=== PATIENT | male | born 1975 | race Caucasian/White ===

== ENCOUNTER → 2017-04-01 | Outpatient (CLI) | payer OTHER | LOC: BMCIMAGING 10:37 | PROVIDERS: ATTEND Family Medicine | DX: M79.671 Pain in right foot (principal); M79.672 Pain in left foot; M25.871 Other specified joint disorders, right ankle and foot; M25.872 Other specified joint disorders, left ankle and foot ==

== ENCOUNTER 2017-10-07 12:08 | Emergency (ER) | payer OTHER ==
[2017-10-07 12:17] VITALS: TEMP 98.6
[2017-10-07] MEDS ORDERED: LIDOCAINE 2% VISCOUS 15 ML UDCUP PO ONE (13:27)
[2017-10-07] MEDS ORDERED: MAG HYDROX/AL HYDROX/SIMETH 30 ML UDCUP PO ONE (13:27)
[2017-10-07] MEDS ORDERED: HYOSCYAMINE SULFATE 0.125 MG TAB PO ONE (13:27)
--- NOTE | 2017-10-07 13:32 | EDPHY ---
H & P Stated Complaint: L mid abd pain nausea x 1 day[place] [facility] [place] Current Tetanus/Diphtheria Vaccine: Unsure Current Tetanus Diphtheria and Acellular Pertussis (TDAP): Unsure - Medical/Surgical History Hx Asthma: No Hx Chronic Respiratory Disease: No Hx Diabetes: No Hx Cardiac Disease: No Hx Renal Disease: No Hx Cirrhosis: No Hx Alcoholism: No Hx HIV/AIDS: No Hx Splenectomy or Spleen Trauma: No Other PMH: denies. no abd surgeries - Social History Smoking Status: Never smoked Time Seen by Provider: 10/07/17 13:13 HPI/ROS: CHIEF COMPLAINT: Epigastric pain, chest pain x1.5 days HISTORY OF PRESENT ILLNESS: 41-year-old male generally healthy complaining of 1.5 days of epigastric discomfort and chest pain. He was seen at urgent care will at [facility] we had ultrasound of the right upper quadrant which is negative and referred to the ER due to concerns over family history, namely his mother at age 40 of suspected cardiac disease. The pain is not reproducible with breathing, palpation. There is no radiation. No dyspnea. No alcohol or drug use. No cigarette use. He last exercised a few days ago playing soccer for 2 hours and did not need to cease activity prematurely, did not develop chest pain with exertion.. No history of immobilization. No history of malignancy. No history of DVT or PE. No vasculopathy history.. No coughing. No hemoptysis. REVIEW OF SYSTEMS: A ten point review of systems was performed and is negative with the exception of the items mentioned in the HPI PAST MEDICAL & SURGICAL HISTORY: No pertinent medical or surgical history . Daily Aleve. No vasculopathy he history. No history of DVT or PE. SOCIAL HISTORY:nonsmoker. No drug use. No cocaine use. FAMILY HISTORY: mother age 40 of suspected cardiac disease PHYSICAL EXAM (Prior to examination, patient consented to physical exam, hands were washed and my usual and customary physical exam procedures followed) 1) GENERAL: Well-developed, well-nourished, alert and oriented. Appears to be in no acute distress. 2) HEAD: Normocephalic, atraumatic 3) HEENT: Pupils equal, round, reactive to light bilaterally. Sclera anicteric. 4) NECK: Full range of motion, no meningeal signs. No bruit. 5) LUNGS: Clear auscultation bilaterally, no wheezes, no rhonchi, no retractions. 6) HEART: Regular rate and rhythm, no murmur, no heave, no gallop. 7) ABDOMEN: No guarding, no rebound, no focal tenderness, negative McBurney's, negative Soto's, negative Rovsing's, negative peritoneal sign, 8) MUSCULOSKELETAL: Moving all extremities, no focal areas of tenderness, no obvious trauma. No peripheral edema or discoloration. Negative Homans no palpable cord. Soft compartments 9) BACK: No CVA tenderness, no midline vertebral tenderness, no fluctuance, no step-off, no obvious trauma, no visual or palpable abnormality. 10) SKIN: No rash, no petechiae. 11) Psychiatric: Patient is oriented X 3, there is no agitation. DIFFERENTIAL DIAGNOSIS: In no particular order, including but not limited to biliary colic, cholecystitis, peptic ulcer disease, pancreatitis, and gastroenteritis. This is a partial list of diagnoses considered. These considerations are based on history, physical exam, past history and reassessment. (Ming Santiago) Constitutional: Initial Vital Signs Temperature (C) 37.0 C 10/07/17 12:14 Heart Rate 67 10/07/17 12:14 Respiratory Rate 16 10/07/17 12:14 Blood Pressure 164/103 H 10/07/17 12:14 O2 Sat (%) 97 10/07/17 12:14 O2 Delivery Mode Room Air Allergies/Adverse Reactions: No Known Allergies Allergy (Verified 10/08/17 09:44) Home Medications: Medication Instructions Recorded Acetaminophen [Tylenol 325mg (*)] 650 mg PO Q6 PRN 10/08/17 Lisinopril [Zestril 20 mg (*)] 30 mg PO DAILY@1800 10/08/17 Naproxen Sodium [Aleve 220 MG (*)] 220 mg PO BID PRN 10/08/17 Medical Decision Making - Diagnostics Imaging Results: Images reviewed by myself (Ming Santiago) ED Course/Re-evaluation: 3:20 p.m.: This patient was re-evaluated with serial examinations. Given GI cocktail and notes improvement in symptoms. The case was discussed with secondary supervising physician Dr. Shani Obrien in the emergency department. I think that is less than likely that the patient's symptoms are secondary to cardiac or pulmonary etiology as he is nonsmoker, no illicit drug use, exercised for 2 hours a few days ago and was asymptomatic, negative troponin in the presence of symptoms for 1.5 days, low risk for pulmonary embolus, negative Wells score, negative perc score. We discussed possibility of esophageal reflux or peptic ulcer disease. I recommended cessation of daily NSAID use. Recommend starting on proton pump inhibitor. To return to the ER immediately if he develops chest pain with exertion, new or worsening symptoms or any other symptoms that concern him. He feels comfortable with this plan. (Ming Santiago) The patient was evaluated and managed by the physician itinerant teacher assistant. I have reviewed this chart and I agree with the findings and plan of care as documented , as indicated by my signature. I am the secondary supervising physician. ( Shani Obrien) - Data Points Laboratory Results: Laboratory Results 10/07/17 14:09 10/07/17 14:09 Medications Given: Discontinued Medications Al Hydroxide/Mg Hydroxide (Maalox Susp) 30 ml PO ONCE ONE Stop: 10/07/17 13:28 Last Admin: 10/07/17 14:00 Dose: 30 ml Hyoscyamine Sulfate (Levsin, Hyomax-Sl) 0.25 mg PO ONCE ONE Stop: 10/07/17 13:28 Last Admin: 10/07/17 14:01 Dose: 0.25 mg Lidocaine (Lidocaine 2% Viscous) 15 ml PO ONCE ONE Stop: 10/07/17 13:28 Last Admin: 10/07/17 14:01 Dose: 15 ml Departure - Departure Disposition: Home, Routine, Self-Care Clinical Impression: Epigastric abdominal pain, Esophageal reflux Condition: Good Instructions: Esophagitis (ED) Additional Instructions: Recommend you stop taking daily Aleve or other NSAID medications. Call 911 if you develop chest pain, shortness of breath or any other symptoms that concern you Referrals: Anat Hernandez MD [Primary Care Provider] - 1-2 days without fail
[2017-10-07 14:16] LABS: % IMMATURE GRANULYOCYTES 0.2 % (0.0-1.1); ABSOLUTE IMMATURE GRANULOCYTES 0.02 10^3/uL (0.00-0.10); ADD DIFF? NO; ADD MORPH? NO; ADD SCAN? NO; ATYPICAL LYMPHOCYTE FLAG 0 (0-99); FRAGMENT RBC FLAG 0 (0-99); LEFT SHIFT FLG 0 (0-99); LIPEMIA HEMOLYSIS FLAG 90 (0-99); MEAN CELL HEMOGLOBIN 32.4 pg (27.9-34.1); MEAN CELL HEMOGLOBIN CONCENTR. 37.2 g/dL (32.4-36.7); MEAN PLATELET VOLUME 10.4 fL (8.7-11.7); PLATELET CLUMPS FLAG 10 (0-99); PLATELET COUNT 164 10^3/uL (150-400); RED BLOOD CELL COUNT 4.94 10^6/uL (4.40-6.38); RED CELL DISTRIBUTION WIDTH 12.1 % (11.5-15.2)
[2017-10-07 14:28] LABS: ALANINE AMINOTRANSFERASE 64 IU/L (21-72); ALBUMIN 4.4 g/dL (3.5-5.0); ALKALINE PHOSPHATASE 55 IU/L (38-126); ANION GAP 12 mEq/L (8-16); ASPARTATE AMINOTRANSFERASE 33 IU/L (17-59); BILIRUBIN,TOTAL 0.7 mg/dL (0.1-1.4); BILIRUBIN-CONJUGATED 0.1 mg/dL (0.0-0.5); BILIRUBIN-UNCONJUGATED 0.6 mg/dL (0.0-1.1); CALCIUM 9.8 mg/dL (8.5-10.4); CARBON DIOXIDE 25 mEq/l (22-31); CHLORIDE 105 mEq/L (97-110); CREATININE 0.8 mg/dL (0.7-1.3); GLOMERULAR FILTRATION RATE > 60; GLUCOSE 88 mg/dL (70-100); POTASSIUM 4.3 mEq/L (3.5-5.2); SODIUM 142 mEq/L (134-144)
[2017-10-07 14:40] LABS: TROPONIN I < 0.012 ng/mL (0.000-0.034)
[2017-10-07 15:49] VITALS: BP 156/99; PULSE 53; RESP 14; O2SAT 94
== END 2017-10-07 15:48 | disposition home or self-care (01) ==
DX: K21.9 Gastro-esophageal reflux disease without esophagitis (principal)

== ENCOUNTER → 2017-10-07 | Outpatient (CLI) | payer OTHER | LOC: BMCIMAGING 09:19 | PROVIDERS: ATTEND Emergency Medicine | DX: K76.0 Fatty (change of) liver, not elsewhere classified (principal) ==

== ENCOUNTER 2017-10-08 01:46 | Observation (INO) | payer OTHER ==
--- NOTE | 2017-10-08 02:16 | CPEKG ---
Heart Rate: 53 RR Interval: 1132 P-R Interval: 188 QRSD Interval: 96 QT Interval: 432 QTC Interval: 406 P [place]: 2 QRS [place]: 10 T Wave [place]: 12 EKG Severity - NORMAL ECG - EKG Impression: SINUS RHYTHM Electronically Signed By: Syed Krishnamurthy 08-Oct-2017 07:19:49
[2017-10-08] MEDS ORDERED: ONDANSETRON 4 MG/2 ML VIAL IVP ONE (02:29)
[2017-10-08] MEDS ORDERED: NS 1,000 ML IV ONE (02:29)
--- NOTE | 2017-10-08 02:29 | EDPHY ---
H & P Stated Complaint: epigastric pain-seen today Time Seen by Provider: 10/08/17 02:11 HPI/ROS: Chief Complaint: Abdominal pain HPI: 40-year-old male presenting with 3 days of epigastric abdominal pain. It started Tuesday night. The following day got worse and that he had difficulty sleeping. He was seen yesterday at urgent care. He had a right upper quadrant ultrasound laboratory evaluation is for negative at that time. He is sent over to this hospital for further evaluation. At that point workup was unremarkable was diagnosed with likely reflux esophagitis. Patient was sent home with oral pain medications. He has had worsening was pain despite taking Percocet. He has had some nausea but no vomiting. No diarrhea. Pain is waves at baseline is 5-6 but sometimes goes up a 9/10. No fevers or chills. No chest pain or shortness of breath. No urinary urgency or frequency. ROS: 10 point Review of Systems is negative except as noted in the HPI. PMH: Hypertension Social History: No smoking, occasional alcohol, no recreational drug use Family History: non-contributory Physical Exam: Gen: Awake, Alert, No Distress HEENT: Nose: no rhinorrhea Eyes: PERRLA, EOMI Mouth: Moist mucosa Neck: Supple, no JVD Chest: nontender, lungs clear to auscultation Heart: S1, S2 normal, no murmur Abd: Soft, he has moderate right lower quadrant and epigastric tenderness with voluntary guarding Back: no CVA tenderness, no midline tenderness Ext: no edema, non-tender Skin: no rash Neuro: CN II-XII intact, Sensation grossly intact, Strength 5/5 in bilateral upper and lower extremities - Personal History Current Tetanus Diphtheria and Acellular Pertussis (TDAP): Yes - Medical/Surgical History Hx Asthma: No Hx Chronic Respiratory Disease: No Hx Diabetes: No Hx Cardiac Disease: No Hx Renal Disease: No Hx Cirrhosis: No Hx Alcoholism: No Hx HIV/AIDS: No Hx Splenectomy or Spleen Trauma: No Other PMH: denies. no abd surgeries - Social History Smoking Status: Never smoked Constitutional: Initial Vital Signs Temperature (C) 36.6 C 10/08/17 01:52 Heart Rate 65 10/08/17 01:52 Respiratory Rate 16 10/08/17 01:52 Blood Pressure 139/101 H 10/08/17 01:52 O2 Sat (%) 100 10/08/17 01:52 O2 Delivery Mode Room Air Allergies/Adverse Reactions: No Known Allergies Allergy (Verified 10/07/17 12:14) Home Medications: Medication Instructions Recorded Lisinopril [Zestril 10 mg (*)] PO DAILY 01/31/11 Pantoprazole Sodium [Protonix 40mg 40 mg PO DAILY #30 tab 10/07/17 (RX)] Medical Decision Making - Diagnostics Imaging Results: CT scan shows a single loop of bowel obstruction in the right mid abdomen with a transition point consistent with a possible internal hernia or adhesions. Study interpreted by Dr. Negrete. Imaging: Discussed imaging studies w/ call or contact centre coach Radiologist ED Course/Re-evaluation: 41-year-old male presenting with abdominal pain and CT scan consistent with a small-bowel obstruction. Patient has been evaluated by Dr. Alan, general surgery. He will admit to his service for further evaluation. - Data Points Laboratory Results: Laboratory Results 10/08/17 02:43 10/08/17 02:43 10/08/17 10/08/17 02:43 02:43 WBC 7.14 10^3/uL 10^3/uL (3.80-9.50) RBC 4.93 10^6/uL 10^6/uL (4.40-6.38) Hgb 15.9 g/dL g/dL (13.7-17.5) Hct 42.5 % % (40.0-51.0) MCV 86.2 fL fL (81.5-99.8) MCH 32.3 pg pg (27.9-34.1) MCHC 37.4 g/dL H g/dL (32.4-36.7) RDW 12.0 % % (11.5-15.2) Plt Count 169 10^3/uL 10^3/uL (150-400) MPV 10.4 fL fL (8.7-11.7) Neut % (Auto) 58.1 % % (39.3-74.2) Lymph % (Auto) 35.4 % % (15.0-45.0) [place] % (Auto) 5.3 % % (4.5-13.0) Eos % (Auto) 0.8 % % (0.6-7.6) Baso % (Auto) 0.1 % L % (0.3-1.7) Nucleat RBC Rel Count 0.0 % % (0.0-0.2) Absolute Neuts (auto) 4.14 10^3/uL 10^3/uL (1.70-6.50) Absolute Lymphs (auto) 2.53 10^3/uL 10^3/uL (1.00-3.00) Absolute Monos (auto) 0.38 10^3/uL 10^3/uL (0.30-0.80) Absolute Eos (auto) 0.06 10^3/uL 10^3/uL (0.03-0.40) Absolute Basos (auto) 0.01 10^3/uL L 10^3/uL (0.02-0.10) Absolute Nucleated RBC 0.00 10^3/uL 10^3/uL (0-0.01) Immature Gran % 0.3 % % (0.0-1.1) Immature Gran # 0.02 10^3/uL 10^3/uL (0.00-0.10) Sodium 140 mEq/L mEq/L (134-144) Potassium 4.2 mEq/L mEq/L (3.5-5.2) Chloride 104 mEq/L mEq/L (97-110) Carbon Dioxide 24 mEq/l mEq/l (22-31) Anion Gap 12 mEq/L mEq/L (8-16) BUN 13 mg/dL mg/dL (7-23) Creatinine 0.8 mg/dL mg/dL (0.7-1.3) Estimated GFR > 60 Glucose 107 mg/dL H mg/dL (70-100) Calcium 10.0 mg/dL mg/dL (8.5-10.4) Total Bilirubin 0.9 mg/dL mg/dL (0.1-1.4) AST 41 IU/L IU/L (17-59) ALT 57 IU/L IU/L (21-72) Alkaline Phosphatase 69 IU/L IU/L (38-126) Total Protein 7.2 g/dL g/dL (6.3-8.2) Albumin 4.5 g/dL g/dL (3.5-5.0) Lipase 281 IU/L IU/L (23-300) Medications Given: Discontinued Medications Sodium Chloride (Ns) 1,000 mls @ 0 mls/hr IV ONCE ONE; Wide Open PRN Reason: Protocol Stop: 10/08/17 02:30 Last Admin: 10/08/17 02:45 Dose: 1,000 mls Morphine Sulfate (Morphine) 4 mg IVP ONCE ONE Stop: 10/08/17 02:30 Last Admin: 10/08/17 02:47 Dose: 4 mg Ondansetron HCl (Zofran) 4 mg IVP EDNOW ONE Stop: 10/08/17 02:30 Last Admin: 10/08/17 02:47 Dose: 4 mg Departure - Departure Disposition: [facility] Inpatient Acute Clinical Impression: Bowel obstruction Condition: Fair Referrals: Anat Hernandez MD [Primary Care Provider] - As per Instructions
[2017-10-08 02:50] LABS: % IMMATURE GRANULYOCYTES 0.3 % (0.0-1.1); ABSOLUTE IMMATURE GRANULOCYTES 0.02 10^3/uL (0.00-0.10); ADD DIFF? NO; ADD MORPH? NO; ADD SCAN? NO; ATYPICAL LYMPHOCYTE FLAG 10 (0-99); FRAGMENT RBC FLAG 0 (0-99); HEMATOCRIT 42.5 % (40.0-51.0); HEMOGLOBIN 15.9 g/dL (13.7-17.5); LEFT SHIFT FLG 0 (0-99); LIPEMIA HEMOLYSIS FLAG 90 (0-99); MEAN CELL HEMOGLOBIN 32.3 pg (27.9-34.1); MEAN CELL HEMOGLOBIN CONCENTR. 37.4 g/dL (32.4-36.7); MEAN CELL VOLUME 86.2 fL (81.5-99.8); MEAN PLATELET VOLUME 10.4 fL (8.7-11.7); PLATELET CLUMPS FLAG 10 (0-99); PLATELET COUNT 169 10^3/uL (150-400); RED BLOOD CELL COUNT 4.93 10^6/uL (4.40-6.38)
[2017-10-08] MEDS ORDERED: IOPAMIDOL (ISOVUE-300) 100 ML BTL ONE (02:52)
[2017-10-08 03:02] LABS: ALANINE AMINOTRANSFERASE 57 IU/L (21-72); ALBUMIN 4.5 g/dL (3.5-5.0); ALKALINE PHOSPHATASE 69 IU/L (38-126); ANION GAP 12 mEq/L (8-16); ASPARTATE AMINOTRANSFERASE 41 IU/L (17-59); BILIRUBIN,TOTAL 0.9 mg/dL (0.1-1.4); CARBON DIOXIDE 24 mEq/l (22-31); CHLORIDE 104 mEq/L (97-110); CREATININE 0.8 mg/dL (0.7-1.3); GLOMERULAR FILTRATION RATE > 60; GLUCOSE 107 mg/dL (70-100); POTASSIUM 4.2 mEq/L (3.5-5.2); SODIUM 140 mEq/L (134-144); TOTAL PROTEIN 7.2 g/dL (6.3-8.2)
--- NOTE | 2017-10-08 04:56 | PDCONSULT ---
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 It woke him from sleep on Tuesday night. He was able to work on but he was up at night again prompting urgent care and emergency room visits on 10/07/2017. The patient denies nausea or vomiting he has had normal gas and bowel movements. He has been somewhat anorexic over the last 24 hr. After discharge yesterday evening from the emergency room he went home 8 some post and then began having abdominal pain again. He presents at approximately 1 o'clock this morning with abdominal pain radiating 4 to 5/10. Morphine helped initially with the pain but is beginning to wear off after 2-[address] scan of the abdomen and pelvis personally reviewed on the PACS shows a posture transition point in the right side of the abdomen likely mid ileum. There is no proximal dilation laboratory studies are normal. No sick contacts. No prior history of abdominal disease in the patient or his family Past medical history: Hypertension, joint pain. Surgical history: No abdominal surgeries Medications: Lisinopril and chondroitin sulfate occasional Aleve Social history: Denies drug use. Architecture Internship. Lives with and 2 children age 1 in 5 No known drug allergies Family history significant for coronary artery disease on both mother and father side. Mother and maternal grandmother before age 50 from heart- related disease. Father had heart attack last year but is now OK after stent Review of systems: Significant for abdominal pain joint pain all others reviewed and are negative Objective: Alert oriented appears in some distress Sclerae anicteric, oropharynx moist good dentition Trachea midline no JVD no cervical adenopathy no supraclavicular adenopathy Regular rate and rhythm Clear to auscultation Abdomen soft tender at McBurney's point without rebound nondistended no hepatosplenomegaly no scars no masses 2+ over 2+ femoral pulses Normal range of motion all 4 extremities good muscle strength No skin rashes normal turgor and tone Normal affect 10/08/17 02:43 10/08/17 02:43 Total Bilirubin 0.9 mg/dL (0.1-1.4) 10/08/17 02:43 AST 41 IU/L (17-59) 10/08/17 02:43 ALT 57 IU/L (21-72) 10/08/17 02:43 CT scan personally reviewed normal appendix is noted there is a small area of dilation which could represent a neurally small-bowel obstruction or possibly normal peristalsis. Given the fact that he has had 3 days of symptoms and has gas in his colon with otherwise normal bowel gas pattern obstruction is less likely. Formal read of the CT scan is not available preliminary read suggests possible small-bowel obstruction Impression/plan: Although this appears to be more consistent with enteritis then a true small- bowel obstruction given the longevity of his symptoms and his clinical exam I would favor proceeding with observation Gastrografin small bowel series and serial examination. Normal transaminases and bilirubins as well as lipase make cholecystitis less likely. The waxing and waning of his pain as well as normal appendix and CT scan do not suggest acute appendicitis at this time. Normal white blood cell count unchanged from yesterday would not warrant use of antibiotics I have had a discussion with the patient and emergency room physician Dr. Krishnamurthy. All are in agreement with this plan. All questions addressed
[2017-10-08] MEDS ORDERED: ONDANSETRON DISINTEGRATING 4 MG TAB PO PRN (04:58)
[2017-10-08] MEDS ORDERED: ACETAMINOPHEN 325 MG TAB PO PRN (04:58)
[2017-10-08] MEDS ORDERED: ONDANSETRON 4 MG/2 ML VIAL IVP PRN (04:58)
[2017-10-08] MEDS ORDERED: NS 1,000 ML IV SCH (05:00)
[2017-10-08 07:40] VITALS: RESP 16
[2017-10-08] MEDS ORDERED: oxyCODONE IR 5 MG TAB PO PRN (09:07)
[2017-10-08] MEDS ORDERED: LISINOPRIL 20 MG TAB PO SCH (09:15)
[2017-10-08 11:18] VITALS: BP 134/90; PULSE 59; TEMP 97.7; O2SAT 96
[2017-10-08] MEDS ORDERED: KETOROLAC 15 MG/1 ML SDV IVP SCH (12:00)
--- NOTE | 2017-10-08 17:26 | ASDISCHSUM ---
Discharge Information Plan Status:Home with No Needs Medically Cleared to Leave: Discharge Date:10/08/2017 04:15 PM CM D/C Disposition:Home, Routine, Self-Care ADT D/C Disposition:Home, Routine, Self-Care Projected Discharge Date:10/08/2017 04:15 PM Transportation at D/C:Family Discharge Delay Reason: Follow-Up Date:10/08/2017 04:15 PM Discharge Slot: Final Diagnosis: Placement Information Patient Contact Information Contact Name:FAREED Relationship: Address:[address] [place] Work Phone: City:[place] Phone: State/Zip Code:[place] [address] Email: Financial Information Financial Class:HMO and PPO Plans Primary Plan Desc:[facility] Primary Plan Number:[id number] Secondary Plan Desc: Secondary Plan Number: Assessment Information Case Management Discharge Plan Note Case Management Discharge Discharge Order Complete? Answers: Yes Patient to Obtain Answers: via Family Medications Transportation Arranged Answers: Family/Friends Discharge Comments Notes: Pt. is a 41-year-old man admitted due to colitis. Stabilized and ready to d/c today independently to and kids. Date Signed: 10/08/2017 03:58 PM Electronically Signed By:Katja Macias LCSW Intervention Information
== END 2017-10-08 16:15 | disposition home or self-care (01) ==
LOC: F3E 05:35
PROVIDERS: ADMIT Surgery; ATTEND Surgery
DX: K56.609 Unspecified intestinal obstruction, unspecified as to partial versus complete obstruction (principal); I10 Essential (primary) hypertension
CPT/HCPCS: 74020; 74177; 93005; G0378; 96374; J1885; J2405; Q9967